=== PATIENT | female | born 1925 | race Caucasian/White ===

== ENCOUNTER → 2016-10-20 | Outpatient (CLI) | payer MEDICARE, MEDICAID ==
[~2016-10-20] MED LIST: ACULAR PF0.5% OP; ALEVE220 MG PO; AMBIEN 10MG10 MG PO; AMBIEN 5MG TABLE5 MG PO; AMIODARONE200 MG PO; ASPIRIN 81M81 MG/TA2 PO; ATIVAN 0.50.5 MG/TAB PO; ATIVAN0.5 MG PO; ATROVENT I0.2 MG/1 M IH; BUMEX 1MG TA1 MG/TA1; BUSPAR10 MG PO; CLARITIN 1010 MG/TAB PO; COMPLETE MULTI1 TA1 PO; COZAAR 50MG50 MG/TAB PO; DITROPAN XL10 MG PO; DITROPAN XL5 MG PO; DOXYCYCLINE 10100 MG PO; EFFEXOR 75M75 MG/TAB PO; EFFEXOR XR75 MG/CAP PO; EFFEXOR-XR150 MG PO; ELIQUIS 2.5 PO; FERRATE325 MG PO; GELNIQUE100 MG/GM TD; GLUCOPHAGE500 MG/TAB PO; GLUCOTROL 5M5 MG/TAB PO; GLYBURIDE2.5 MG PO; HCTZ; HCTZ12.5TAB PO; HYDROCORT CREAM1% TOP; IMODIUM 2MG CAPS2 MG PO; IPRATROPIUM BROM3 M1 IH; IRON TABLETS325 MG PO; K-DUR 2020 MEQ PO; KLOR-CON M2020 MEQ PO; LASIX 20MG TABL20 MG PO; LASIX 40MG TABL40 MG PO; LASIX20 MG PO; LEVAQUIN 2250 MG/TAB PO; LEVAQUIN 5500 MG/TA1 PO; LEVAQUIN 750MG750 M1 PO; LEVEMIR FLEX100 U/ML SQ; LEVEMIR FLEXPEN SC; LEVEMIR100 U/ML; LEVEMIR100 U/ML SC; LEVOTHYROXIN0.112 MG PO; LIPITOR20 MG PO; LISINOPRIL40 MG PO; LOPRESSOR50 MG PO; LOW DOSE ASPIRI81 MG PO; MACROBID 1100 MG/CAP; MACROBID 1100 MG/CAP PO; MACRODANTIN50 MG/CA1 PO; MEDI-FIRST NON325 MG PO; METFORMIN500 MG PO; MUCINEX D 12001 TER PO; MUCINEX1200 MG PO; MULTI VITAMINS1 TAB PO; NAVANE PO; NAVANE1 MG PO; NEURONTIN600 MG/TAB PO; NITROSTAT0.4 MG/TAB SL; NORCO 325 MG-51 TAB; NYQUIL GENERIC PO; OCUFLOX OPHTH DR5 ML OP; OMEPRAZOLE20 MG PO; OXYBUTYNIN ER15 MG PO; PAXIL 20MG20 MG PO; PLAVIX 75MG TAB75 MG PO; POTASSIUM CH2 MEQ/ML PO; PRED FORTE 1 ML1 ML OP; PREMARIN .3MG0.3 MG PO; PREMARIN 0.60.625 M1; PREMARIN VAG42.5 GM TOP; PREMARIN VAG42.5 GM VG; PREMARIN0.3 MG PO; PRILOSEC 20MG20 MG PO; PROLOPRIM100 MG PO; REMERON30 MG PO; SALINE MIST 4545 ML NS; SARNA ANTI-ITC222 ML TOP; SEPTRA DS 8001 TAB PO; SEROQUEL 200MG200 MG PO; SEROQUEL 2525 MG/TAB PO; SYNTHROID0.112 MG/T PO; TAZTIA PO; TAZTIA XT240 MG PO; TEMOVATE0.05% TOP; TEMOVATEE15CR TOP; TYLENOL 325MG325 MG PO; ULTRAM50 MG PO; VESICARE 5MG5 MG PO; WELCHOL 625MG625 MG PO; ZOLPIDEM10 MG PO; [UNRECOGNIZED DRUG - OTHER]; [UNRECOGNIZED DRUG - OTHER] PO; [UNRECOGNIZED DRUG - OTHER] TP
[2016-10-20 15:55] LABS: PH 5 (5-8); URINE APPEARANCE Hazy; URINE BACTERIA Occasional /hpf; URINE BILIRUBIN Negative (NEGATIVE); URINE BLOOD 2+ (NEGATIVE); URINE COLOR Yellow; URINE GLUCOSE Negative (NEGATIVE); URINE KETONE Negative (NEGATIVE); URINE UROBILINOGEN Negative (NEGATIVE)
== END ==
LOC: ZCOL.LAB 15:29
PROVIDERS: Urology
DX: N31.8 Other neuromuscular dysfunction of bladder (principal); I12.9 Hypertensive chronic kidney disease with stage 1 through stage 4 chronic kidney disease, or unspecified chronic kidney disease; N18.3 Chronic kidney disease, stage 3 (moderate); N39.0 Urinary tract infection, site not specified

== ENCOUNTER 2016-10-24 16:02 | Emergency (ER) | payer MEDICARE, MEDICAID ==
[~2016-10-24] VITALS: Ht 167.6 cm; Wt 98.6 kg
[~2016-10-24 16:02] MED LIST changes: -ATROVENT I0.2 MG/1 M IH; -DOXYCYCLINE 10100 MG PO; -EFFEXOR-XR150 MG PO; -ELIQUIS 2.5 PO; -GLUCOTROL 5M5 MG/TAB PO; -MUCINEX D 12001 TER PO; -NYQUIL GENERIC PO; -PREMARIN VAG42.5 GM TOP; -SALINE MIST 4545 ML NS; -SEROQUEL 200MG200 MG PO; -SEROQUEL 2525 MG/TAB PO; -TEMOVATEE15CR TOP
[2016-10-24 16:06] VITALS: TEMP 98.4
[2016-10-24 16:47] LABS: INFLUENZA B NEGATIVE
[2016-10-24] MEDS ORDERED: DOXYCYCLINE 10100 MG PO (17:03)
[2016-10-24] MEDS ORDERED: EFFEXOR-XR150 MG PO (17:06)
[2016-10-24] MEDS ORDERED: ELIQUIS 2.5 PO (17:07)
[2016-10-24 17:24] LABS: ADD PATHOLOGY DIFF REVIEW NO; HEMATOCRIT 32.3 % (37.0-47.0); HEMOGLOBIN 9.8 g/dl (12.5-16.0); MEAN CELL VOLUME 95 fl (80.0-100.0); MEAN CORPUSCULAR HEMOGLOBIN 29 pg (27.0-31.0); MEAN CORPUSCULAR HGB CONC 30 g/dl (33.0-37.0); MEAN PLATELET VOLUME 10.4 fl (7.4-10.4); PLATELET COUNT 170 K/mm3 (130-400); RED BLOOD COUNT 3.39 M/mm3 (4.10-5.30); REDCELL DISTRIBUTION WIDTH-CV 15.5 % (11.5-14.5); WHITE BLOOD COUNT 5.2 K/mm3 (4.8-10.8)
[2016-10-24] MEDS ORDERED: MUCINEX D 12001 TER PO (17:27)
[2016-10-24 17:29] LABS: PH 5 (5-8); SQUAMOUS EPITHELIAL 0-2 /hpf; URINE APPEARANCE Clear; URINE BACTERIA Rare /hpf; URINE BILIRUBIN Negative (NEGATIVE); URINE BLOOD 1+ (NEGATIVE); URINE COLOR Yellow; URINE GLUCOSE Negative (NEGATIVE); URINE KETONE Negative (NEGATIVE); URINE UROBILINOGEN Negative (NEGATIVE); URINE WBC 20-50 /hpf
[2016-10-24] MEDS ORDERED: SEROQUEL 2525 MG/TAB PO (17:31)
[2016-10-24 17:36] LABS: ADJUSTED CALCIUM 7.8 mg/dL (8.4-10.2); BILIRUBIN,TOTAL 0.6 mg/dL (0.0-1.0); CALCIUM 7.8 mg/dL (8.4-10.2); CREATININE, serum 2.26 mg/dL (0.52-1.25); TOTAL PROTEIN 7.7 gm/dL (6.4-8.2)
[2016-10-24 17:47] LABS: BAND 6 % (0-10); BASOPHIL 2 % (0-2); NEUTROPHILS 30 % (42.0-75.2); TOTAL CELLS COUNTED 100
[2016-10-24 17:49] LABS: ANISOCYTOSIS 2+; MICROCYTOSIS 3+; POIKILOCYTOSIS 1+
[2016-10-24] MEDS ORDERED: MACROBID 1100 MG/CAP PO (18:43)
[2016-10-24 20:32] VITALS: BP 128/58; PULSE 85
== END 2016-10-24 20:37 | disposition home or self-care (01) ==
LOC: COL.ER 16:02
PROVIDERS: Emergency Medicine
DX: N39.0 Urinary tract infection, site not specified (principal); I50.9 Heart failure, unspecified; B96.20 Unspecified Escherichia coli [E. coli] as the cause of diseases classified elsewhere; I48.91 Unspecified atrial fibrillation; E11.9 Type 2 diabetes mellitus without complications; I25.10 Atherosclerotic heart disease of native coronary artery without angina pectoris; Z95.1 Presence of aortocoronary bypass graft; Z66 Do not resuscitate

== ENCOUNTER → 2016-11-09 | Outpatient (CLI) | payer MEDICARE, MEDICAID ==
[~2016-11-09] MED LIST changes: +ATROVENT I0.2 MG/1 M IH; +DOXYCYCLINE 10100 MG PO; +EFFEXOR-XR150 MG PO; +ELIQUIS 2.5 PO; +GLUCOTROL 5M5 MG/TAB PO; +MUCINEX D 12001 TER PO; +NYQUIL GENERIC PO; +PREMARIN VAG42.5 GM TOP; +SALINE MIST 4545 ML NS; +SEROQUEL 200MG200 MG PO; +SEROQUEL 2525 MG/TAB PO; +TEMOVATEE15CR TOP
[2016-11-09 11:51] LABS: CALCIUM 8.7 mg/dL (8.4-10.2); CREATININE, serum 1.6 mg/dL (0.52-1.25); POTASSIUM 5.2 mmol/L (3.4-5.0)
== END ==
LOC: ZLAB.STJ 11:25
PROVIDERS: Urology
DX: I10 Essential (primary) hypertension (principal)

== ENCOUNTER → 2017-03-10 | Outpatient (CLI) | payer MEDICARE, MEDICAID ==
[2017-03-10 19:01] LABS: CALCIUM 7.8 mg/dL (8.4-10.2); CREATININE, serum 1.73 mg/dL (0.52-1.25); POTASSIUM 5.3 mmol/L (3.4-5.0)
[2017-03-10 19:05] LABS: PH 5 (5-8); SQUAMOUS EPITHELIAL 0-2 /hpf; URINE APPEARANCE Hazy; URINE BACTERIA Rare /hpf; URINE BILIRUBIN Negative (NEGATIVE); URINE BLOOD 1+ (NEGATIVE); URINE COLOR Yellow; URINE GLUCOSE Negative (NEGATIVE); URINE KETONE Negative (NEGATIVE); URINE UROBILINOGEN Negative (NEGATIVE); URINE WBC 20-50 /hpf
[2017-03-10 19:32] LABS: THYROID STIMULATING HORMONE 12.3 uIU/mL (0.465-4.680)
== END ==
LOC: ZCOL.LAB 18:20
PROVIDERS: Internal Medicine
DX: E03.9 Hypothyroidism, unspecified (principal); I10 Essential (primary) hypertension; R30.0 Dysuria

== ENCOUNTER 2017-03-22 12:22 | Emergency (ER) | payer MEDICARE, MEDICAID ==
[~2017-03-22] VITALS: Ht 167.6 cm; Wt 100.0 kg
[~2017-03-22 12:22] MED LIST changes: -ATROVENT I0.2 MG/1 M IH; -GLUCOTROL 5M5 MG/TAB PO; -NYQUIL GENERIC PO; -PREMARIN VAG42.5 GM TOP; -SALINE MIST 4545 ML NS; -SEROQUEL 200MG200 MG PO; -TEMOVATEE15CR TOP
[2017-03-22 12:29] VITALS: TEMP 97.9
[2017-03-22 12:59] LABS: BASO % 0.2 % (0.0-2.0); EOS # 0.1 (0.0-0.7); EOS % 1.1 % (0-4.0); GRAN # 6.5 (1.4-6.5); GRAN % 74.6 % (42.2-75.2); LYMPH # 1.6 (1.2-3.4); LYMPH % 18.1 % (20.0-51.0); MEAN CELL VOLUME 94 fl (80.0-100.0); MEAN CORPUSCULAR HGB CONC 30 g/dl (33.0-37.0); MEAN PLATELET VOLUME 10.4 fl (7.4-10.4); MONO # 0.5 (0.1-0.6); MONO % 5.7 % (1.7-9.3); PLATELET COUNT 176 K/mm3 (130-400); RED BLOOD COUNT 3.12 M/mm3 (4.10-5.30); REDCELL DISTRIBUTION WIDTH-CV 15.7 % (11.5-14.5); WHITE BLOOD COUNT 8.7 K/mm3 (4.8-10.8)
[2017-03-22 13:01] LABS: HEMATOCRIT 29.4 % (37.0-47.0); HEMOGLOBIN 8.9 g/dl (12.5-16.0); MEAN CORPUSCULAR HEMOGLOBIN 29 pg (27.0-31.0)
[2017-03-22 13:05] LABS: PARTIAL THROMBOPLASTIN TIME 39.3 SECONDS (26.0-37.0)
[2017-03-22 13:09] LABS: ADJUSTED CALCIUM 8.4 mg/dL (8.4-10.2); ALBUMIN 3.9 gm/dL (3.5-5.0); BILIRUBIN,TOTAL 0.6 mg/dL (0.0-1.0); CALCIUM 8.3 mg/dL (8.4-10.2); CREATININE, serum 2.13 mg/dL (0.52-1.25); TOTAL PROTEIN 7.4 gm/dL (6.4-8.2)
[2017-03-22 13:15] LABS: INR 1.6 (0.8-3.0); PROTHROMBIN TIME 17.9 SECONDS (9.7-12.8)
[2017-03-22 13:20] LABS: TROPONIN-I 0.032 ng/mL (0.000-0.034)
[2017-03-22 14:00] LABS: PH 5 (5-8); SQUAMOUS EPITHELIAL None Seen /hpf; URINE APPEARANCE Hazy; URINE BACTERIA Many /hpf; URINE BILIRUBIN Negative (NEGATIVE); URINE BLOOD 1+ (NEGATIVE); URINE COLOR Yellow; URINE GLUCOSE Negative (NEGATIVE); URINE KETONE Negative (NEGATIVE); URINE RBC 0-2 /hpf; URINE UROBILINOGEN Negative (NEGATIVE)
[2017-03-22] MEDS ORDERED: TEMOVATEE15CR TOP (15:00)
[2017-03-22] MEDS ORDERED: IMODIUM 2MG CAPS2 MG PO (15:03)
[2017-03-22] MEDS ORDERED: PREMARIN VAG42.5 GM TOP (15:05)
[2017-03-22] MEDS ORDERED: NITROSTAT0.4 MG/TAB SL (15:44)
[2017-03-22] MEDS ORDERED: TYLENOL 325MG325 MG PO (15:52)
[2017-03-22] MEDS ORDERED: MUCINEX D 12001 TER PO (15:54)
[2017-03-22] MEDS ORDERED: NYQUIL GENERIC PO (15:55)
[2017-03-22] MEDS ORDERED: ATROVENT I0.2 MG/1 M IH (15:56)
[2017-03-22] MEDS ORDERED: ELIQUIS 2.5 PO (15:57)
[2017-03-22] MEDS ORDERED: EFFEXOR-XR150 MG PO (15:58)
[2017-03-22] MEDS ORDERED: SALINE MIST 4545 ML NS (15:59)
[2017-03-22] MEDS ORDERED: ATIVAN 0.50.5 MG/TAB PO (16:00)
[2017-03-22] MEDS ORDERED: SEROQUEL 200MG200 MG PO (16:01)
[2017-03-22] MEDS ORDERED: NEURONTIN600 MG/TAB PO (16:01)
[2017-03-22] MEDS ORDERED: GLUCOTROL 5M5 MG/TAB PO (16:28)
[2017-03-22 17:15] VITALS: BP 120/68; PULSE 79
== END 2017-03-22 17:45 | disposition home or self-care (01) ==
LOC: COL.ER 12:22
PROVIDERS: Emergency Medicine
DX: I50.9 Heart failure, unspecified (principal); D64.9 Anemia, unspecified; R53.1 Weakness; R60.0 Localized edema; I48.91 Unspecified atrial fibrillation; Z99.81 Dependence on supplemental oxygen; F03.90 Unspecified dementia, unspecified severity, without behavioral disturbance, psychotic disturbance, mood disturbance, and anxiety; E11.9 Type 2 diabetes mellitus without complications; Z91.81 History of falling; Z99.3 Dependence on wheelchair; X58.XXXA Exposure to other specified factors, initial encounter; Y92.129 Unspecified place in nursing home as the place of occurrence of the external cause; Z95.1 Presence of aortocoronary bypass graft; S40.021A Contusion of right upper arm, initial encounter; S20.212A Contusion of left front wall of thorax, initial encounter; R19.5 Other fecal abnormalities; R06.00 Dyspnea, unspecified; R41.82 Altered mental status, unspecified; Z79.4 Long term (current) use of insulin